=== PATIENT | male | born 1975 | race Caucasian/White ===

== ENCOUNTER 2021-10-10 07:45 | Inpatient (IN) ==
[2021-10-10] MEDS ORDERED: IOPAMIDOL 100 ML BOTTLE IV ONE (07:46)
--- NOTE | 2021-10-10 08:03 | Emergency Department Note ---
HPI General Chief complaint: Shortness of Breath/Dyspnea Stated complaint: shortness of breath, low O2 sats Time Seen by Provider: 10/10/21 08:03 Source: patient and other (Friend) Mode of arrival: ambulatory Limitations: other (Deafness) History of Present Illness HPI Narrative: 46-year-old male with past medical history of deafness and CAD not on anticoagulation presenting with shortness of breath. He was diagnosed with COVID-19 on October 03 at the [facility]. He presents today with worsening shortness of breath and generalized fatigue. Oxygen saturation at urgent care was in the 70s on room air so sent to the ED. He endorses a nonproductive cough and fever as well. He has not received the COVID-19 vaccine. No abdominal pain, chest pain, vomiting, or leg swelling. History was obtained via friend and patient who are both able to read lips. Related Data Home Medications Medication Instructions Recorded Confirmed No Known Home Meds 10/10/21 10/10/21 Allergies Allergy/AdvReac Type Severity Reaction Status Date / Time NKDA Allergy Unknown NONE Uncoded 10/10/21 08:16 Review of Systems ROS ROS Narrative: Narrative: Constitutional: Reports fever ENT ED: Denies throat pain Cardiovascular: Denies chest pain Respiratory: Reports shortness of breath and cough; Denies hemoptysis Gastrointestinal: Denies abdominal pain, nausea or vomiting Genitourinary: Denies dysuria Musculoskeletal: Denies back pain Integumentary: Denies rash Neurological: Denies headache Psychiatric: Denies anxiety Endocrine: Reports fatigue PFSH Narrative Patient History Narrative: Narrative: Medical/Surgical/Family History All Active Problems (Updated 10/10/21 @ 17:18 by Saad Elias MD) COVID (Acute) Social History Smoking Status: Never smoker Exam Narrative Narrative: Narrative: General Limitations: other (Deafness) General appearance: Present alert and in no apparent distress Head Head: Present atraumatic and normocephalic Eye Eye: Present normal appearance and EOMI; Absent scleral icterus or conjunctival injection ENT ENT: Present mucous membranes moist Neck Neck: Present normal inspection, full ROM and trachea midline Chest Chest: Present symmetric chest wall rise Respiratory Respiratory: Present normal lung sounds bilaterally; Absent respiratory distress, wheezes, stridor, accessory muscle use or prolonged expiratory phase Cardiovascular Cardiovascular: Present regular rate and normal rhythm; Absent systolic murmur or diastolic murmur Adbominal Abdominal: Present soft; Absent distention, tenderness, guarding, rebound or rigidity Extremities Extremities: Present normal inspection and full ROM; Absent pretibial edema Back Back: Present normal inspection Neurological Neurological: Present alert and oriented X3 Psychiatric Psychiatric: Present normal affect and normal mood Skin Skin: Present warm (WNL) and dry Course Consultations Consultation #1: Dr. Rendon, hospitalist Time: 11:01 Vital Signs Vital signs: Vital Signs Pulse Rate 90 10/10/21 07:56 Blood Pressure 133/72 10/10/21 07:56 Pulse Oximetry (%) 92 10/10/21 07:56 Temperature 97.2 F 10/10/21 16:02 Pulse Rate 83 10/10/21 13:17 Respiratory Rate 30 H 10/10/21 16:19 Blood Pressure 131/76 10/10/21 16:02 Pulse Oximetry (%) 83 L 10/10/21 16:19 MDM MDM Narrative Medical decision making narrative: 46-year-old male presenting with shortness of breath and fatigue. He recently tested positive for COVID-19. On arrival to the ED he was satting in the 70s on room air, he is now satting in the low 90s on 6 L via nasal cannula. Will obtain labs, chest x-ray, and likely admit for hypoxia secondary to Covid 19. Patient discussed with admitting hospitalist, Dr. Hernandez. IV dexamethasone 10 mg and remdesivir ordered. Lab Data Lab results reviewed: Yes I reviewed the patient's lab results. Result diagrams: 10/10/21 08:27 10/10/21 08:27 Labs: Lab Results 10/10/21 10/10/21 10/10/21 Range/Units 08:15 08:27 08:27 WBC 5.7 (4.5-11.0) K/mcL RBC 4.01 L (4.63-6.08) M/mcL Hgb 12.9 L (13.7-17.5) g/dL Hct 38.0 L (40.1-51.0) % MCV 94.8 (80.0-100.0) fL MCH 32.2 (26.0-34.0) pg MCHC 33.9 (31.0-36.0) g/dL RDW 12.5 (11.5-14.5) % Plt Count 189 (140-440) K/mcL MPV 11.1 H (7.4-10.4) fL Neut % (Auto) 81.3 H (38.0-78.0) % Lymph % (Auto) 13.8 L (15.5-49.0) % Brown % (Auto) 4.7 (1.0-12.0) % Eos % (Auto) 0 (0.0-7.0) % Baso % (Auto) 0.2 (0.0-2.0) % Lymph # (Auto) 0.79 L (1.50-4.80) K/mcL [place] # (Auto) 0.27 (0.10-0.90) K/mcL Eos # (Auto) 0 (0.00-0.70) K/mcL Baso # (Auto) 0.01 (0.00-0.30) K/mcL Seg Neutrophils % 79 H (38-78) % Lymphocytes % 15 (15-49) % Monocytes % (Manual) 6 (1-12) % Absolute Neutrophils 4.64 (1.80-8.00) K/mcL Platelet Estimate Normal (Normal) RBC Morphology Normal (Normal) Sodium 135 (133-145) mmol/L Potassium 4.0 (3.3-5.1) mmol/L Chloride 99 (96-108) mmol/L Carbon Dioxide 26 (22-30) mmol/L Anion Gap 10.0 (8.0-16.0) BUN 12 (6-20) mg/dL Creatinine 0.9 (0.7-1.2) mg/dL GFR Calculation 103 Glucose 128 H (70-105) mg/dL Calcium 7.9 L (8.6-10.4) mg/dL Ferritin (30.0-400.0) ng/mL AST (<40) U/L ALT (<40) U/L Alkaline Phosphatase (39-117) U/L C-Reactive Protein (0.03-0.80) mg/dL Procalcitonin (<0.10) ng/mL 10/10/21 10/10/21 10/10/21 Range/Units 08:27 08:27 08:27 WBC (4.5-11.0) K/mcL RBC (4.63-6.08) M/mcL Hgb (13.7-17.5) g/dL Hct (40.1-51.0) % MCV (80.0-100.0) fL MCH (26.0-34.0) pg MCHC (31.0-36.0) g/dL RDW (11.5-14.5) % Plt Count (140-440) K/mcL MPV (7.4-10.4) fL Neut % (Auto) (38.0-78.0) % Lymph % (Auto) (15.5-49.0) % Brown % (Auto) (1.0-12.0) % Eos % (Auto) (0.0-7.0) % Baso % (Auto) (0.0-2.0) % Lymph # (Auto) (1.50-4.80) K/mcL Brown # (Auto) (0.10-0.90) K/mcL Eos # (Auto) (0.00-0.70) K/mcL Baso # (Auto) (0.00-0.30) K/mcL Seg Neutrophils % (38-78) % Lymphocytes % (15-49) % Monocytes % (Manual) (1-12) % Absolute Neutrophils (1.80-8.00) K/mcL Platelet Estimate (Normal) RBC Morphology (Normal) Sodium (133-145) mmol/L Potassium (3.3-5.1) mmol/L Chloride (96-108) mmol/L Carbon Dioxide (22-30) mmol/L Anion Gap (8.0-16.0) BUN (6-20) mg/dL Creatinine (0.7-1.2) mg/dL GFR Calculation Glucose (70-105) mg/dL Calcium (8.6-10.4) mg/dL Ferritin 1549.0 H (30.0-400.0) ng/mL AST 61 H (<40) U/L ALT 51 H (<40) U/L Alkaline Phosphatase 38 L (39-117) U/L C-Reactive Protein 17.70 H (0.03-0.80) mg/dL Procalcitonin 0.98 H (<0.10) ng/mL Radiology Data Radiology results reviewed: Yes I reviewed the patient's radiology results. Radiology results narrative: Ordering Physician:Saad Elias M.D. Date of Service:10/10/21 Procedure(s):CT angio chest History: Severe hypoxia, chest pain, tested positive for COVID pneumonia TECHNIQUE: Following injection of intravenous nonionic contrast the chest was imaged during the pulmonary arterial phase. Sagittal, coronal and axial MIPS images were created. The radiation exposure was limited using dose reduction technology. FINDINGS: The pulmonary arteries are normal without evidence of emboli. The aorta is normal in caliber and there is no plaque formation aneurysm or dissection. The heart is normal in size and contour. No pericardial or pleural effusion are present. There are severe infiltrates throughout both lungs. This is a mosaic distribution of groundglass consolidation. The greatest opacification is in both lower lobes, where there are air bronchograms. There is no evidence of a lung mass. The trachea and bronchi are normal. No abnormally enlarged lymph nodes are present. There is mild generalized fatty infiltration throughout the liver. IMPRESSION: Severe widespread bilateral COVID pneumonia. No evidence of pulmonary emboli Dr. Minaya was called with the report Interpreted and Authenticated by: Saeid Benitez 10/10/21 Ordering Physician:Saad Elias M.D. Date of Service:10/10/21 Procedure(s):XR chest 1V portable HISTORY: Hypoxia FINDINGS: Severe widespread alveolar infiltrates are present throughout both lungs. The heart does not appear enlarged. Lung volumes are relatively small due to suboptimal inspiration. No pleural effusion is present. The eliecer are obscured by surrounding consolidated lung parenchyma. No prior study is available for comparison. IMPRESSION: Severe infiltrates in both lungs. This is more likely due to pneumonia than pulmonary edema Interpreted and Authenticated by: Saeid Benitez 10/10/21 Discharge Plan Patient/Caregiver Discharge Instructions Pt seen by LPN CMA/PA only: No Clinical Impression: COVID Patient Disposition: Xfer As Inpt ([facility]) Condition: Fair Discharge Date/Time: 10/10/21 13:35
[2021-10-10] MEDS ORDERED: 0.9 % SODIUM CHLORIDE 1,000 ML IV ONE (08:34)
[2021-10-10] MEDS ORDERED: ACETAMINOPHEN 325 MG TABLET PO ONE (08:52)
--- NOTE | 2021-10-10 08:56 | XRay Report ---
HISTORY: Hypoxia FINDINGS: Severe widespread alveolar infiltrates are present throughout both lungs. The heart does not appear enlarged. Lung volumes are relatively small due to suboptimal inspiration. No pleural effusion is present. The eliecer are obscured by surrounding consolidated lung parenchyma. No prior study is available for comparison. IMPRESSION: Severe infiltrates in both lungs. This is more likely due to pneumonia than pulmonary edema Interpreted and Authenticated by: Saeid Benitez 10/10/21
[2021-10-10 09:20] LABS: Basophils # (Auto) 0.01 K/mcL (0.00-0.30); Basophils % (Auto) 0.2 % (0.0-2.0); Eosinophils # (Auto) 0 K/mcL (0.00-0.70); Eosinophils % (Auto) 0 % (0.0-7.0); Hemoglobin 12.9 g/dL (13.7-17.5); Lymphocytes # (Auto) 0.79 K/mcL (1.50-4.80); Lymphocytes % (Auto) 13.8 % (15.5-49.0); Mean Cell Volume 94.8 fL (80.0-100.0); Mean Corpuscular HGB Conc 33.9 g/dL (31.0-36.0); Mean Platelet Volume 11.1 fL (7.4-10.4); Monocytes # (Auto) 0.27 K/mcL (0.10-0.90); Monocytes % (Auto) 4.7 % (1.0-12.0); Neutrophils % (Auto) 81.3 % (38.0-78.0); Platelet Count 189 K/mcL (140-440); RBC 4.01 M/mcL (4.63-6.08); Red Cell Distribution Width 12.5 % (11.5-14.5); WBC 5.7 K/mcL (4.5-11.0)
[2021-10-10 09:39] LABS: Blood Urea Nitrogen 12 mg/dL (6-20); Calcium 7.9 mg/dL (8.6-10.4); Carbon Dioxide 26 mmol/L (22-30); Chloride 99 mmol/L (96-108); Glomerular Filtration Rate 103; Glucose 128 mg/dL (70-105)
[2021-10-10] MEDS ORDERED: DEXAMETHASONE 10 MG/ML VIAL IV ONE (10:58)
[2021-10-10] MEDS ORDERED: REMDESIVIR 200 MG in 0.9 % SODIUM CHLORIDE 250 ML IV ONE ×2 (10:58→12:00)
--- NOTE | 2021-10-10 11:18 | Cat Scan Report ---
History: Severe hypoxia, chest pain, tested positive for COVID pneumonia TECHNIQUE: Following injection of intravenous nonionic contrast the chest was imaged during the pulmonary arterial phase. Sagittal, coronal and axial MIPS images were created. The radiation exposure was limited using dose reduction technology. FINDINGS: The pulmonary arteries are normal without evidence of emboli. The aorta is normal in caliber and there is no plaque formation aneurysm or dissection. The heart is normal in size and contour. No pericardial or pleural effusion are present. There are severe infiltrates throughout both lungs. This is a mosaic distribution of groundglass consolidation. The greatest opacification is in both lower lobes, where there are air bronchograms. There is no evidence of a lung mass. The trachea and bronchi are normal. No abnormally enlarged lymph nodes are present. There is mild generalized fatty infiltration throughout the liver. IMPRESSION: Severe widespread bilateral COVID pneumonia. No evidence of pulmonary emboli Dr. Minaya was called with the report Interpreted and Authenticated by: Saeid Benitez 10/10/21
[2021-10-10 11:41] LABS: ALT/SGPT 51 U/L (<40); AST/SGOT 61 U/L (<40); Alkaline Phosphatase 38 U/L (39-117)
[2021-10-10 12:35] LABS: C-Reactive Protein 17.7 mg/dL (0.03-0.80)
--- NOTE | 2021-10-10 12:51 | Internal Med History&Physical ---
HPI History of Present Illness Patient information: Note initiated : 10/10/21 at 12:48 pm Service Date, if different from initiated Date: [] Patient: Leonel Mccracken 46 y/o M admitted on for Shortness Of Breath, Low O2 Sats. Chief Complaint: [] History of present illness: Mr. 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 My exam is assisted by diplomatic interpreter/translator via iPad. pt presents for shortness of breath cough fever chills. Started feeling ill in late September and was positive for Covid on the . Patient not vaccinated. Oxygen saturations in the 70s on room air when he arrived. CTA was done which showed no PE but widespread infiltrates consistent with Covid pneumonia Was on 6 L nasal cannula but they change him to 15 L oxygen mask. Switched to Vapotherm and are watching in the ED for several hours to make sure he does not worsen because if he is requiring anything close to CPAP/BiPAP he will likely need to be transferred as these patients usually end up intubated if not responding to high flow nasal cannula. >>>> Patient doing well on Vapotherm with a flow of 30 and FiO2 of 60%. Review of Systems: Positive as above. Remaining 10 point review of system reviewed negative PFSH PFSH All Active Problems (System 10/10/21 @ 08:16 by Hazel Stephens) COVID (Acute) MEDS/ALLERGIES Home Medications and Allergies Home Medications Medication Instructions Recorded Confirmed Type No Known Home Meds 10/10/21 10/10/21 History Allergies Allergy/AdvReac Type Severity Reaction Status Date / Time NKDA Allergy Unknown NONE Uncoded 10/10/21 08:16 EXAM Constitutional Vitals: Temp Pulse Resp BP Pulse Ox 103.2 F H 87 24 H 122/73 92 10/10/21 07:58 10/10/21 12:16 10/10/21 12:16 10/10/21 12:16 10/10/21 12:16 Exam: General: Alert, Awake, No acute Distress, obese Eyes/N/T: EOMI, PERRL, Head/Neck: neck supple, normocephalic atraumatic CV: RRR, No murmurs, normal s1/s2 Pulm: diminished b/l, no wheezing Abd: soft, nontender, +BS x4 Ext: no clubbing/cyanosis/edema Neuro: Alert, no focal deficits, moves all extremities, CN 2-12 grossly intact, Skin: warm/dry DATA Data Completed and Pending Labs: Labs from last 24 hours 10/10/21 10/10/21 10/10/21 08:27 08:27 08:27 WBC RBC Hgb Hct MCV MCH MCHC RDW Plt Count MPV Neut % (Auto) Lymph % (Auto) [place] % (Auto) Eos % (Auto) Baso % (Auto) Lymph # (Auto) [place] # (Auto) Eos # (Auto) Baso # (Auto) Absolute Neutrophils D-Dimer Pending Sodium Potassium Chloride Carbon Dioxide Anion Gap BUN Creatinine GFR Calculation Glucose Calcium Ferritin 1549.0 H AST ALT Alkaline Phosphatase C-Reactive Protein 17.70 H Procalcitonin Pending 10/10/21 10/10/21 10/10/21 08:27 08:27 08:27 WBC 5.7 RBC 4.01 L Hgb 12.9 L Hct 38.0 L MCV 94.8 MCH 32.2 MCHC 33.9 RDW 12.5 Plt Count 189 MPV 11.1 H Neut % (Auto) 81.3 H Lymph % (Auto) 13.8 L [place] % (Auto) 4.7 Eos % (Auto) 0 Baso % (Auto) 0.2 Lymph # (Auto) 0.79 L [place] # (Auto) 0.27 Eos # (Auto) 0 Baso # (Auto) 0.01 Absolute Neutrophils 4.64 D-Dimer Sodium 135 Potassium 4.0 Chloride 99 Carbon Dioxide 26 Anion Gap 10.0 BUN 12 Creatinine 0.9 GFR Calculation 103 Glucose 128 H Calcium 7.9 L Ferritin AST 61 H ALT 51 H Alkaline Phosphatase 38 L C-Reactive Protein Procalcitonin A/P Narrative A/P Narrative: A: *Covid PNA w/ARDS: *Acute hypoxic respiratory failure: -on vapotherm 30lpm/60% *Obesity: *Deaf: P: -Remdesivir/dexamethasone/baricitinib(actemra unavailable) -Proning/mobilization/OOB to chair -Wean O2 as able -IS/Acapella, prn Nebs, RT -prn IV lasix -ppx: lovenox bid Time Spent With Patient Time: Total time spent is greater than 50% in coordination of care (as documented) at patient's floor/unit and/or counseling patient:
[2021-10-10] MEDS ORDERED: POTASSIUM CHLORIDE 20 MEQ TABLET PO PRN ×2 (13:40)
[2021-10-10] MEDS ORDERED: ONDANSETRON 4 MG/2 ML VIAL IV PRN (13:40)
[2021-10-10] MEDS ORDERED: POTASSIUM CHLORIDE 40 MEQ in DEXTROSE 5% IN WATER 500 ML IV PRN (13:40)
[2021-10-10] MEDS ORDERED: MAGNESIUM SULFATE 2 GM/50 ML BAG IV PRN (13:40)
[2021-10-10] MEDS ORDERED: SENNOSIDES 1 TABLET PO PRN (13:40)
[2021-10-10] MEDS: 0.9 % SODIUM CHLORIDE 10 ML SYRINGE IV SCH ×2 (13:58→21:49)
[2021-10-10] MEDS: BARICITINIB 2 MG TABLET PO SCH (13:58)
[2021-10-10 14:50] LABS: Lymphocytes % 15 % (15-49); Monocytes % (Manual) 6 % (1-12); Platelet Estimate NORMAL (Normal); RBC Morphology NORMAL (Normal); Segmented Neutrophils % 79 % (38-78)
[2021-10-10] MEDS: ACETAMINOPHEN 325 MG TABLET PO PRN (21:48)
[2021-10-10] MEDS: ENOXAPARIN 40 MG/0.4 ML SYRINGE SQ SCH (21:48)
[2021-10-11] MEDS: IPRATROPIUM/ALBUTEROL 3 ML AMPUL.NEB NEB PRN (02:44)
[2021-10-11] MEDS: guaiFENesin/DEXTROMETHORPHAN ORAL SOL PO PRN (03:03)
[2021-10-11] MEDS ORDERED: guaiFENesin/DEXTROMETHORPHAN ORAL SOL ONE (03:07)
[2021-10-11] MEDS: 0.9 % SODIUM CHLORIDE 10 ML SYRINGE IV SCH ×3 (06:28→21:44)
[2021-10-11] MEDS ORDERED: FUROSEMIDE 40 MG/4 ML VIAL IV ONE (07:35)
[2021-10-11] MEDS ORDERED: ALBUMIN HUMAN 12.5 GM/50 ML BAG IV ONE (07:35)
--- NOTE | 2021-10-11 07:36 | Internal Med Progress Note ---
SUBJECTIVE Subjective Patient information: Note initiated : 10/11/21 at 7:35 am Service Date, if different from initiated Date: [] Patient: Leonel Mccracken 46 y/o M admitted on 10/10/21 for Shortness Of Breath, Low O2 Sats. Chief Complaint: [] Interval history: History of present illness: Mr. 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 My exam is assisted by machine straw hat presser via iPad. pt presents for shortness of breath cough fever chills. Started feeling ill in late September and was positive for Covid on the . Patient not vaccinated. Oxygen saturations in the 70s on room air when he arrived. CTA was done which showed no PE but widespread infiltrates consistent with Covid pneumonia Was on 6 L nasal cannula but they change him to 15 L oxygen mask. Switched to Vapotherm and are watching in the ED for several hours to make sure he does not worsen because if he is requiring anything close to CPAP/BiPAP he will likely need to be transferred as these patients usually end up intubated if not responding to high flow nasal cannula. >>>> Patient doing well on Vapotherm with a flow of 30 and FiO2 of 60%. / Patient slept okay but not particularly well. Says his shortness of breath is okay and sometimes difficult. He is requiring more oxygen. He states it hurts to cough. He was not proning yesterday but was willing to do it today. Constitutional Vitals: Vital Signs Temp Pulse Resp BP Pulse Ox 98.1 F 74 31 H 109/60 96 10/11/21 02:01 10/10/21 21:30 10/11/21 06:01 10/11/21 06:01 10/11/21 07:14 Period Temp Pulse Resp BP Sys/Chan Pulse Ox Last 24 Hr 97.2 F-103.2 F 74-97 19-33 103-139/60-96 76-100 Intake and Output 10/10/21 10/11/21 10/11/21 21:59 05:59 13:59 Intake Total 730 Output Total 600 600 Balance 130 -600 Weight 93.44 kg Intake & Output: Intake & Output 10/10/21 10/11/21 10/11/21 21:59 05:59 13:59 Intake Total 730 Output Total 600 600 Balance 130 -600 Weight 93.44 kg Intake: IV 250 Veklury 200 mg In Sodium 250 Chloride 0.9% 250 ml @ 500 mls/ hr IV ONCE ONE Rx#:[id number] Oral 480 Output: Void Amount 600 600 Other: Meal Dinner Percent of Meal Consumed 100% Feeding Ability Independent Urine Appearance Clear Clear Urine Color Dark Yellow Light Ana Cristina Urine Odor Normal Exam: General: Alert, Awake, No acute Distress, obese Eyes/N/T: EOMI, Head/Neck: neck supple, CV: RRR, No murmurs, Pulm: diminished b/l and fine rales, no wheezing Abd: soft, nontender, +BS x4 Ext: no clubbing/cyanosis/edema Neuro: Alert, no focal deficits, moves all extremities, Skin: warm/dry OBJ DATA Labs CBC & Chem 7: 10/11/21 06:08 10/11/21 06:08 Labs: Abnormal Lab Results 10/10/21 10/10/21 10/10/21 08:27 08:27 08:27 RBC Hgb Hct MPV Neut % (Auto) Lymph % (Auto) Lymph # (Auto) Seg Neutrophils % Glucose Calcium Ferritin 1549.0 H AST 61 H ALT 51 H Alkaline Phosphatase 38 L C-Reactive Protein 17.70 H Procalcitonin 0.98 H 10/10/21 10/10/21 10/10/21 08:27 08:27 08:15 RBC 4.01 L Hgb 12.9 L Hct 38.0 L MPV 11.1 H Neut % (Auto) 81.3 H Lymph % (Auto) 13.8 L Lymph # (Auto) 0.79 L Seg Neutrophils % 79 H Glucose 128 H Calcium 7.9 L Ferritin AST ALT Alkaline Phosphatase C-Reactive Protein Procalcitonin Meds: Medications Acetaminophen (Acetaminophen 325 Mg Tablet) 650 mg PO Q6HP PRN; Protocol PRN Reason: Per Pain Protocol/Fever > 101 Albuterol/Ipratropium (Ipratropium/Albuterol 3 Ml Ampul.Neb) 3 ml NEB Q4HP PRN PRN Reason: Shortness Of Breath Last Admin: 10/11/21 02:44 Dose: 3 ml Documented by: Dexamethasone (Dexamethasone 4 Mg Tablet) 6 mg PO DAILY RADHA Enoxaparin Sodium (Enoxaparin 40 Mg/0.4 Ml Syringe) 40 mg SQ BID [facility] Last Admin: 10/10/21 21:48 Dose: 40 mg Documented by: Guaifenesin (Guaifenesin/Dextromethorphan Oral Leandra) 10 ml PO Q4HP PRN PRN Reason: Cough Last Admin: 10/11/21 03:03 Dose: 10 ml Documented by: Potassium Chloride 40 meq/ (Dextrose) 520 mls @ 130 mls/hr IV UD PRN PRN Reason: Potassium < 3 Magnesium Sulfate (Magnesium Sulfate) 2 gm in 50 mls @ 50 mls/hr IV UD PRN PRN Reason: Magnesium </= 1.6 REMDESIVIR 100 mg/ Sodium (Chloride) 250 mls @ 500 mls/hr IV DAILY@1100 [facility] Stop: 10/14/21 11:29 Ondansetron HCl (Ondansetron 4 Mg/2 Ml Vial) 4 mg IV Q4HP PRN PRN Reason: Nausea And Vomiting Polyethylene Glycol (Polyethylene Glycol 3350 17 Gm Packet) 17 gm PO DAILYP PRN PRN Reason: Constipation Potassium Chloride (Potassium Chloride 20 Meq Tablet) 40 meq PO UD PRN PRN Reason: Potssium is 3-3.5 Potassium Chloride (Potassium Chloride 20 Meq Tablet) 40 meq PO UD PRN PRN Reason: Potassium < 3 Senna (Sennosides 1 Tablet) 2 tab PO DAILYP PRN PRN Reason: Constipation Sodium Chloride (0.9 % Sodium Chloride 10 Ml Syringe) 10 ml IV Q8 [facility] Last Admin: 10/11/21 06:28 Dose: 10 ml Documented by: A/P Narrative A/P Narrative: A: *Covid PNA w/ARDS: *Acute hypoxic respiratory failure: -on vapotherm 35lpm/70% *Obesity: *Deaf: P: -Remdesivir/dexamethasone/baricitinib(actemra unavailable) -Proning/mobilization/OOB to chair -Wean O2 as able -IS/Acapella, prn Nebs, RT -prn IV lasix -ppx: lovenox bid Time Spent With Patient Time: Total time spent is greater than 50% in coordination of care (as documented) at patient's floor/unit and/or counseling patient: QUALITY VTE Deep Vein Thrombosis/Pulmonary Embolism Present on Admission: No
[2021-10-11 07:41] LABS: Basophils # (Auto) 0 K/mcL (0.00-0.30); Basophils % (Auto) 0 % (0.0-2.0); Eosinophils # (Auto) 0 K/mcL (0.00-0.70); Eosinophils % (Auto) 0 % (0.0-7.0); Hematocrit 41.7 % (40.1-51.0); Lymphocytes # (Auto) 0.75 K/mcL (1.50-4.80); Lymphocytes % (Auto) 10.5 % (15.5-49.0); Mean Cell Volume 95.6 fL (80.0-100.0); Mean Corpuscular HGB Conc 33.6 g/dL (31.0-36.0); Monocytes # (Auto) 0.33 K/mcL (0.10-0.90); Monocytes % (Auto) 4.6 % (1.0-12.0); Neutrophils % (Auto) 84.9 % (38.0-78.0); Platelet Count 222 K/mcL (140-440); RBC 4.36 M/mcL (4.63-6.08); Red Cell Distribution Width 12.5 % (11.5-14.5); WBC 7.1 K/mcL (4.5-11.0)
[2021-10-11 08:13] LABS: ALT/SGPT 53 U/L (<40); AST/SGOT 58 U/L (<40); Albumin 2.9 gm/dL (3.2-5.2); Albumin/Globulin Ratio 0.9 (1.0-2.3); Alkaline Phosphatase 41 U/L (39-117); Bilirubin,Direct < 0.2 mg/dL (0-0.3); Bilirubin,Total 0.4 mg/dL (0.1-1.0); Blood Urea Nitrogen 14 mg/dL (6-20); Calcium 8.2 mg/dL (8.6-10.4); Carbon Dioxide 24 mmol/L (22-30); Chloride 106 mmol/L (96-108); Globulin 3.3 gm/dL (2.2-3.7); Glomerular Filtration Rate 115; Glucose 142 mg/dL (70-105); Lactate Dehydrogenase 650 U/L (135-225); Triglycerides 73 mg/dL (<150); Uric Acid 4.6 mg/dL (2.5-8.0)
[2021-10-11] MEDS: BARICITINIB 2 MG TABLET PO SCH (09:25)
[2021-10-11] MEDS: DEXAMETHASONE 4 MG TABLET PO SCH (09:25)
[2021-10-11] MEDS: ENOXAPARIN 40 MG/0.4 ML SYRINGE SQ SCH ×2 (09:25→21:44)
[2021-10-11] MEDS: cefTRIAXone 2 GM in DEXTROSE 5% IN WATER 50 ML IV SCH (09:29)
[2021-10-11] MEDS ORDERED: AZITHROMYCIN 500 MG in DEXTROSE 5% IN WATER 250 ML IV ONE (10:00)
[2021-10-11] MEDS: REMDESIVIR 100 MG in 0.9 % SODIUM CHLORIDE 250 ML IV SCH (11:00)
[2021-10-12] MEDS: IPRATROPIUM/ALBUTEROL 3 ML AMPUL.NEB NEB PRN (00:13)
[2021-10-12] MEDS: guaiFENesin/DEXTROMETHORPHAN ORAL SOL PO PRN (00:14)
[2021-10-12] MEDS: 0.9 % SODIUM CHLORIDE 10 ML SYRINGE IV SCH ×4 (06:25→21:36)
--- NOTE | 2021-10-12 07:28 | Internal Med Progress Note ---
SUBJECTIVE Subjective Patient information: Note initiated : 10/12/21 at 7:26 am Service Date, if different from initiated Date: [] Patient: Leonel Mccracken 46 y/o M admitted on 10/10/21 for Shortness Of Breath, Low O2 Sats. Chief Complaint: [] Interval history: History of present illness: Mr. 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 My exam is assisted by bilingual interpreter via iPad. pt presents for shortness of breath cough fever chills. Started feeling ill in late September and was positive for Covid on the . Patient not vaccinated. Oxygen saturations in the 70s on room air when he arrived. CTA was done which showed no PE but widespread infiltrates consistent with Covid pneumonia Was on 6 L nasal cannula but they change him to 15 L oxygen mask. Switched to Vapotherm and are watching in the ED for several hours to make sure he does not worsen because if he is requiring anything close to CPAP/BiPAP he will likely need to be transferred as these patients usually end up intubated if not responding to high flow nasal cannula. >>>> Patient doing well on Vapotherm with a flow of 30 and FiO2 of 60%. 1/ Patient slept okay but not particularly well. Says his shortness of breath is okay and sometimes difficult. He is requiring more oxygen. He states it hurts to cough. He was not proning yesterday but was willing to do it today. 10/12 Patient feels he is doing little better today. However still on high oxygen requirement at 45 L and 100% FiO2. We will attempt more proning today. Constitutional Vitals: Vital Signs Temp Pulse Resp BP Pulse Ox 97.4 F 74 25 H 126/64 90 10/12/21 04:01 10/10/21 21:30 10/12/21 07:21 10/12/21 07:01 10/12/21 07:21 Period Temp Pulse Resp BP Sys/Chan Pulse Ox Last 24 Hr 97.1 F-98.4 F 22-38 101-137/56-86 89-98 Intake and Output 10/11/21 10/12/21 10/12/21 21:59 05:59 13:59 Intake Total 480 720 Output Total 700 Balance 480 20 Weight 92.618 kg Intake & Output: Intake & Output 10/11/21 10/12/21 10/12/21 21:59 05:59 13:59 Intake Total 480 720 Output Total 700 Balance 480 20 Weight 92.618 kg Intake: Oral 480 720 Output: Void Amount 700 Other: Urine Appearance Clear Urine Color Dark Yellow Exam: General: Alert, Awake, No acute Distress, obese Eyes/N/T: EOMI, Head/Neck: neck supple, CV: RRR, No murmurs, Pulm: diminished b/l and fine rales, no wheezing Abd: soft, nontender, +BS x4 Ext: no clubbing/cyanosis/edema Neuro: Alert, no focal deficits, moves all extremities, Skin: warm/dry OBJ DATA Labs CBC & Chem 7: 10/11/21 06:08 10/12/21 05:49 Labs: Abnormal Lab Results 10/11/21 10/11/21 10/11/21 06:09 06:08 06:08 RBC 4.36 L Hgb Hct MPV 11.0 H Neut % (Auto) 84.9 H Lymph % (Auto) 10.5 L Lymph # (Auto) 0.75 L Seg Neutrophils % D-Dimer Glucose 142 H Calcium 8.2 L Magnesium 2.6 H Ferritin AST 58 H ALT 53 H Alkaline Phosphatase Lactate Dehydrogenase 650 H C-Reactive Protein 18.40 H Albumin 2.9 L Albumin/Globulin Ratio 0.9 L Procalcitonin 0.67 H 10/10/21 10/10/21 10/10/21 08:27 08:27 08:27 RBC Hgb Hct MPV Neut % (Auto) Lymph % (Auto) Lymph # (Auto) Seg Neutrophils % D-Dimer 1.43 H Glucose Calcium Magnesium Ferritin 1549.0 H AST ALT Alkaline Phosphatase Lactate Dehydrogenase C-Reactive Protein 17.70 H Albumin Albumin/Globulin Ratio Procalcitonin 0.98 H 10/10/21 10/10/21 10/10/21 08:27 08:27 08:27 RBC 4.01 L Hgb 12.9 L Hct 38.0 L MPV 11.1 H Neut % (Auto) 81.3 H Lymph % (Auto) 13.8 L Lymph # (Auto) 0.79 L Seg Neutrophils % D-Dimer Glucose 128 H Calcium 7.9 L Magnesium Ferritin AST 61 H ALT 51 H Alkaline Phosphatase 38 L Lactate Dehydrogenase C-Reactive Protein Albumin Albumin/Globulin Ratio Procalcitonin 10/10/21 08:15 RBC Hgb Hct MPV Neut % (Auto) Lymph % (Auto) Lymph # (Auto) Seg Neutrophils % 79 H D-Dimer Glucose Calcium Magnesium Ferritin AST ALT Alkaline Phosphatase Lactate Dehydrogenase C-Reactive Protein Albumin Albumin/Globulin Ratio Procalcitonin Meds: Medications Acetaminophen (Acetaminophen 325 Mg Tablet) 650 mg PO Q6HP PRN; Protocol PRN Reason: Per Pain Protocol/Fever > 101 Albuterol/Ipratropium (Ipratropium/Albuterol 3 Ml Ampul.Neb) 3 ml NEB Q4HP PRN PRN Reason: Shortness Of Breath Last Admin: 10/12/21 00:13 Dose: 3 ml Documented by: Dexamethasone (Dexamethasone 4 Mg Tablet) 6 mg PO DAILY [facility] Last Admin: 10/11/21 09:25 Dose: 6 mg Documented by: Enoxaparin Sodium (Enoxaparin 40 Mg/0.4 Ml Syringe) 40 mg SQ BID [facility] Last Admin: 10/11/21 21:44 Dose: 40 mg Documented by: Guaifenesin (Guaifenesin/Dextromethorphan Oral Leandra) 10 ml PO Q4HP PRN PRN Reason: Cough Last Admin: 10/12/21 00:14 Dose: 10 ml Documented by: Potassium Chloride 40 meq/ (Dextrose) 520 mls @ 130 mls/hr IV UD PRN PRN Reason: Potassium < 3 Magnesium Sulfate (Magnesium Sulfate) 2 gm in 50 mls @ 50 mls/hr IV UD PRN PRN Reason: Magnesium </= 1.6 REMDESIVIR 100 mg/ Sodium (Chloride) 250 mls @ 500 mls/hr IV DAILY@1100 [facility] Stop: 10/14/21 11:29 Last Infusion: 10/11/21 11:46 Dose: Infused Documented by: Ceftriaxone Sodium 2 gm/ (Dextrose) 50 mls @ 100 mls/hr IV DAILY [facility]; Protocol Last Infusion: 10/11/21 10:30 Dose: Infused Documented by: Azithromycin 250 mg/ Dextrose 250 mls @ 250 mls/hr IV DAILY@1000 [facility] Stop: 10/15/21 10:59 Ondansetron HCl (Ondansetron 4 Mg/2 Ml Vial) 4 mg IV Q4HP PRN PRN Reason: Nausea And Vomiting Last Admin: 10/11/21 11:42 Dose: 4 mg Documented by: Polyethylene Glycol (Polyethylene Glycol 3350 17 Gm Packet) 17 gm PO DAILYP PRN PRN Reason: Constipation Potassium Chloride (Potassium Chloride 20 Meq Tablet) 40 meq PO UD PRN PRN Reason: Potssium is 3-3.5 Potassium Chloride (Potassium Chloride 20 Meq Tablet) 40 meq PO UD PRN PRN Reason: Potassium < 3 Senna (Sennosides 1 Tablet) 2 tab PO DAILYP PRN PRN Reason: Constipation Sodium Chloride (0.9 % Sodium Chloride 10 Ml Syringe) 10 ml IV Q8 RADHA Last Admin: 10/12/21 06:25 Dose: 10 ml Documented by: A/P Narrative A/P Narrative: A: *Covid PNA w/ARDS: *Acute hypoxic respiratory failure: -on vapotherm 45lpm/85-100% *Obesity: *Deaf: P: -Remdesivir/dexamethasone/baricitinib(actemra unavailable) -Empiric antibiotics given elevation of procalcitonin and severity of disease process -Proning/mobilization/OOB to chair -Wean O2 as able -IS/Acapella, prn Nebs, RT -prn IV lasix -ppx: lovenox bid guarded prognosis Time Spent With Patient Time: Total time spent is greater than 50% in coordination of care (as documented) at patient's floor/unit and/or counseling patient: QUALITY VTE Deep Vein Thrombosis/Pulmonary Embolism Present on Admission: No
[2021-10-12] MEDS: BARICITINIB 2 MG TABLET PO SCH (08:13)
[2021-10-12] MEDS: DEXAMETHASONE 4 MG TABLET PO SCH (08:14)
[2021-10-12] MEDS: cefTRIAXone 2 GM in DEXTROSE 5% IN WATER 50 ML IV SCH (08:14)
[2021-10-12] MEDS: ENOXAPARIN 40 MG/0.4 ML SYRINGE SQ SCH ×2 (08:14→21:36)
[2021-10-12 08:20] LABS: ALT/SGPT 61 U/L (<40); AST/SGOT 48 U/L (<40); Alkaline Phosphatase 47 U/L (39-117); Bilirubin,Direct < 0.2 mg/dL (0-0.3); Bilirubin,Total 0.4 mg/dL (0.1-1.0); Blood Urea Nitrogen 20 mg/dL (6-20); Calcium 8.1 mg/dL (8.6-10.4); Carbon Dioxide 25 mmol/L (22-30); Chloride 104 mmol/L (96-108); Glomerular Filtration Rate 108; Glucose 219 mg/dL (70-105); Lactate Dehydrogenase 571 U/L (135-225); Phosphorous 3.9 mg/dL (2.5-4.5); Triglycerides 73 mg/dL (<150); Uric Acid 5.6 mg/dL (2.5-8.0)
[2021-10-12] MEDS: AZITHROMYCIN 250 MG in DEXTROSE 5% IN WATER 250 ML IV SCH (09:30)
[2021-10-12] MEDS ORDERED: HYDROCHLOROTHIAZIDE 12.5 MG CAPSULE PO ONE (10:23)
[2021-10-12] MEDS ORDERED: FUROSEMIDE 40 MG/4 ML VIAL IV ONE (10:23)
[2021-10-12] MEDS: REMDESIVIR 100 MG in 0.9 % SODIUM CHLORIDE 250 ML IV SCH (10:40)
[2021-10-12] MEDS: POLYETHYLENE GLYCOL 3350 17 GM PACKET PO PRN (13:17)
[2021-10-12] MEDS: ACETAMINOPHEN 325 MG TABLET PO PRN (21:44)
[2021-10-13] MEDS: 0.9 % SODIUM CHLORIDE 10 ML SYRINGE IV SCH ×3 (05:18→21:04)
[2021-10-13 08:11] LABS: ALT/SGPT 69 U/L (<40); AST/SGOT 43 U/L (<40); Albumin 3.2 gm/dL (3.2-5.2); Albumin/Globulin Ratio 1.6 (1.0-2.3); Alkaline Phosphatase 51 U/L (39-117); Bilirubin,Direct < 0.2 mg/dL (0-0.3); Bilirubin,Total 0.5 mg/dL (0.1-1.0); Blood Urea Nitrogen 23 mg/dL (6-20); Calcium 7.9 mg/dL (8.6-10.4); Carbon Dioxide 27 mmol/L (22-30); Chloride 100 mmol/L (96-108); Glomerular Filtration Rate 115; Glucose 206 mg/dL (70-105); Lactate Dehydrogenase 582 U/L (135-225); Phosphorous 3.8 mg/dL (2.5-4.5); Triglycerides 113 mg/dL (<150); Uric Acid 5.9 mg/dL (2.5-8.0)
[2021-10-13] MEDS ORDERED: FAMOTIDINE/PF 20 MG/2 ML VIAL IV ONE (08:22)
--- NOTE | 2021-10-13 08:26 | Internal Med Progress Note ---
SUBJECTIVE Subjective Patient information: Note initiated : 10/13/21 at 8:22 am Service Date, if different from initiated Date: [] Patient: Leonel Mccracken 46 y/o M admitted on 10/10/21 for Shortness Of Breath, Low O2 Sats. Chief Complaint: [] Interval history: History of present illness: Mr. 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 My exam is assisted by per diem interpreter via iPad. pt presents for shortness of breath cough fever chills. Started feeling ill in late September and was positive for Covid on the . Patient not vaccinated. Oxygen saturations in the 70s on room air when he arrived. CTA was done which showed no PE but widespread infiltrates consistent with Covid pneumonia Was on 6 L nasal cannula but they change him to 15 L oxygen mask. Switched to Vapotherm and are watching in the ED for several hours to make sure he does not worsen because if he is requiring anything close to CPAP/BiPAP he will likely need to be transferred as these patients usually end up intubated if not responding to high flow nasal cannula. >>>> Patient doing well on Vapotherm with a flow of 30 and FiO2 of 60%. 1/ Patient slept okay but not particularly well. Says his shortness of breath is okay and sometimes difficult. He is requiring more oxygen. He states it hurts to cough. He was not proning yesterday but was willing to do it today. 10/12 Patient feels he is doing little better today. However still on high oxygen requirement at 45 L and 100% FiO2. We will attempt more proning today. 10/13 Patient seems to feeling a little bit better today. Nurse able to go down quite a bit on his FiO2 down to 50% today. Constitutional Vitals: Vital Signs Temp Pulse Resp BP Pulse Ox 97.8 F 74 21 123/65 94 10/13/21 04:01 10/13/21 07:48 10/13/21 07:48 10/13/21 06:01 10/13/21 07:48 Period Temp Pulse Resp BP Sys/Chan Pulse Ox Last 24 Hr 97.4 F-98.3 F 74-74 20-39 107-135/59-79 88-100 Intake and Output 0110/13/21 10/13/21 21:59 05:59 13:59 Intake Total 640 Output Total 500 450 Balance -500 190 Weight 91.796 kg Intake & Output: Intake & Output 10/12/21 10/13/21 10/13/21 21:59 05:59 13:59 Intake Total 640 Output Total 500 450 Balance -500 190 Weight 91.796 kg Intake: Oral 640 Output: Void Amount 500 450 Other: Urine Appearance Clear Clear Urine Color Bright Yellow Pale Urine Odor Normal Exam: General: Alert, Awake, No acute Distress, obese Eyes/N/T: EOMI, Head/Neck: neck supple, CV: RRR, No murmurs, Pulm: better aeration, clearing fine rales, no wheezing Abd: soft, nontender, +BS x4 Ext: no clubbing/cyanosis/edema Neuro: Alert, no focal deficits, moves all extremities, Skin: warm/dry OBJ DATA Labs CBC & Chem 7: 10/11/21 06:08 10/13/21 06:00 Labs: Abnormal Lab Results 10/13/21 10/12/21 10/12/21 06:00 05:49 05:49 RBC Hgb Hct MPV Neut % (Auto) Lymph % (Auto) Lymph # (Auto) Seg Neutrophils % D-Dimer BUN 23 H Glucose 206 H 219 H Calcium 7.9 L 8.1 L Magnesium Ferritin > 2000.0 H AST 43 H 48 H ALT 69 H 61 H Alkaline Phosphatase Lactate Dehydrogenase 582 H 571 H C-Reactive Protein 7.50 H Total Protein 5.2 L Albumin 3.0 L Globulin 2.0 L Albumin/Globulin Ratio Procalcitonin 10/12/21 10/12/21 10/11/21 05:49 05:49 06:09 RBC Hgb Hct MPV Neut % (Auto) Lymph % (Auto) Lymph # (Auto) Seg Neutrophils % D-Dimer 1.54 H BUN Glucose Calcium Magnesium Ferritin AST ALT Alkaline Phosphatase Lactate Dehydrogenase C-Reactive Protein Total Protein Albumin Globulin Albumin/Globulin Ratio Procalcitonin 0.43 H 0.67 H 10/11/21 10/11/21 10/10/21 06:08 06:08 08:27 RBC 4.36 L Hgb Hct MPV 11.0 H Neut % (Auto) 84.9 H Lymph % (Auto) 10.5 L Lymph # (Auto) 0.75 L Seg Neutrophils % D-Dimer BUN Glucose 142 H Calcium 8.2 L Magnesium 2.6 H Ferritin AST 58 H ALT 53 H Alkaline Phosphatase Lactate Dehydrogenase 650 H C-Reactive Protein 18.40 H Total Protein Albumin 2.9 L Globulin Albumin/Globulin Ratio 0.9 L Procalcitonin 0.98 H 10/10/21 10/10/21 10/10/21 08:27 08:27 08:27 RBC Hgb Hct MPV Neut % (Auto) Lymph % (Auto) Lymph # (Auto) Seg Neutrophils % D-Dimer 1.43 H BUN Glucose Calcium Magnesium Ferritin 1549.0 H AST 61 H ALT 51 H Alkaline Phosphatase 38 L Lactate Dehydrogenase C-Reactive Protein 17.70 H Total Protein Albumin Globulin Albumin/Globulin Ratio Procalcitonin 10/10/21 10/10/21 10/10/21 08:27 08:27 08:15 RBC 4.01 L Hgb 12.9 L Hct 38.0 L MPV 11.1 H Neut % (Auto) 81.3 H Lymph % (Auto) 13.8 L Lymph # (Auto) 0.79 L Seg Neutrophils % 79 H D-Dimer BUN Glucose 128 H Calcium 7.9 L Magnesium Ferritin AST ALT Alkaline Phosphatase Lactate Dehydrogenase C-Reactive Protein Total Protein Albumin Globulin Albumin/Globulin Ratio Procalcitonin Meds: Medications Acetaminophen (Acetaminophen 325 Mg Tablet) 650 mg PO Q6HP PRN; Protocol PRN Reason: Per Pain Protocol/Fever > 101 Last Admin: 10/12/21 21:44 Dose: 650 mg Documented by: Albuterol/Ipratropium (Ipratropium/Albuterol 3 Ml Ampul.Neb) 3 ml NEB Q4HP PRN PRN Reason: Shortness Of Breath Last Admin: 10/12/21 00:13 Dose: 3 ml Documented by: Dexamethasone (Dexamethasone 4 Mg Tablet) 6 mg PO DAILY [facility] Last Admin: 10/12/21 08:14 Dose: 6 mg Documented by: Enoxaparin Sodium (Enoxaparin 40 Mg/0.4 Ml Syringe) 40 mg SQ BID [facility] Last Admin: 10/12/21 21:36 Dose: 40 mg Documented by: Guaifenesin (Guaifenesin/Dextromethorphan Oral Leandra) 10 ml PO Q4HP PRN PRN Reason: Cough Last Admin: 10/12/21 00:14 Dose: 10 ml Documented by: Potassium Chloride 40 meq/ (Dextrose) 520 mls @ 130 mls/hr IV UD PRN PRN Reason: Potassium < 3 Magnesium Sulfate (Magnesium Sulfate) 2 gm in 50 mls @ 50 mls/hr IV UD PRN PRN Reason: Magnesium </= 1.6 REMDESIVIR 100 mg/ Sodium (Chloride) 250 mls @ 500 mls/hr IV DAILY@1100 [facility] Stop: 10/14/21 11:29 Last Infusion: 10/12/21 12:13 Dose: Infused Documented by: Ceftriaxone Sodium 2 gm/ (Dextrose) 50 mls @ 100 mls/hr IV DAILY [facility]; Protocol Last Infusion: 10/12/21 09:30 Dose: Infused Documented by: Azithromycin 250 mg/ Dextrose 250 mls @ 250 mls/hr IV DAILY@1000 [facility] Stop: 10/15/21 10:59 Last Infusion: 10/12/21 10:40 Dose: Infused Documented by: Ondansetron HCl (Ondansetron 4 Mg/2 Ml Vial) 4 mg IV Q4HP PRN PRN Reason: Nausea And Vomiting Last Admin: 10/11/21 11:42 Dose: 4 mg Documented by: Polyethylene Glycol (Polyethylene Glycol 3350 17 Gm Packet) 17 gm PO DAILYP PRN PRN Reason: Constipation Last Admin: 10/12/21 13:17 Dose: 17 gm Documented by: Potassium Chloride (Potassium Chloride 20 Meq Tablet) 40 meq PO UD PRN PRN Reason: Potssium is 3-3.5 Potassium Chloride (Potassium Chloride 20 Meq Tablet) 40 meq PO UD PRN PRN Reason: Potassium < 3 Senna (Sennosides 1 Tablet) 2 tab PO DAILYP PRN PRN Reason: Constipation Sodium Chloride (0.9 % Sodium Chloride 10 Ml Syringe) 10 ml IV Q8 [facility] Last Admin: 10/13/21 05:18 Dose: 10 ml Documented by: A/P Narrative A/P Narrative: A: *Covid PNA w/ARDS: *Acute hypoxic respiratory failure: -on vapotherm 35lpm/50% *Obesity: *Deaf: *mild transaminitis: Secondary to viral illness. stable P: -Remdesivir/dexamethasone/baricitinib(actemra unavailable) -Empiric antibiotics given elevation of procalcitonin and severity of disease process -Proning/mobilization/OOB to chair -Wean O2 as able -IS/Acapella, prn Nebs, RT -prn IV lasix -ppx: lovenox bid / H2 guarded prognosis Time Spent With Patient Time: Total time spent is greater than 50% in coordination of care (as documented) at patient's floor/unit and/or counseling patient: QUALITY VTE Deep Vein Thrombosis/Pulmonary Embolism Present on Admission: No
[2021-10-13] MEDS: DEXAMETHASONE 4 MG TABLET PO SCH (08:30)
[2021-10-13] MEDS: ENOXAPARIN 40 MG/0.4 ML SYRINGE SQ SCH ×2 (08:31→21:04)
[2021-10-13] MEDS: BARICITINIB 2 MG TABLET PO SCH (08:31)
[2021-10-13] MEDS: cefTRIAXone 2 GM in DEXTROSE 5% IN WATER 50 ML IV SCH (08:31)
[2021-10-13] MEDS: AZITHROMYCIN 250 MG in DEXTROSE 5% IN WATER 250 ML IV SCH (09:12)
[2021-10-13] MEDS: guaiFENesin/DEXTROMETHORPHAN ORAL SOL PO PRN ×2 (09:12→17:30)
[2021-10-13] MEDS: REMDESIVIR 100 MG in 0.9 % SODIUM CHLORIDE 250 ML IV SCH (10:20)
[2021-10-13] MEDS: SODIUM CHLORIDE NASAL 1 SPRAY BOTTLE NAS PRN (12:47)
[2021-10-13] MEDS: POLYETHYLENE GLYCOL 3350 17 GM PACKET PO PRN (16:44)
[2021-10-13] MEDS ORDERED: FAMOTIDINE/PF 20 MG/2 ML VIAL IV SCH (21:00)
[2021-10-13] MEDS: FAMOTIDINE/PF 20 MG/2 ML VIAL IV SCH (21:04)
[2021-10-14] MEDS: 0.9 % SODIUM CHLORIDE 10 ML SYRINGE IV SCH ×3 (06:30→20:08)
--- NOTE | 2021-10-14 07:49 | Internal Med Progress Note ---
SUBJECTIVE Subjective Patient information: Note initiated : 10/14/21 at 7:49 am Service Date, if different from initiated Date: [] Patient: Leonel Mccracken 46 y/o M admitted on 10/10/21 for Shortness Of Breath, Low O2 Sats. Chief Complaint: [] Interval history: History of present illness: Mr. 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 My exam is assisted by professor of voice via iPad. pt presents for shortness of breath cough fever chills. Started feeling ill in late September and was positive for Covid on the . Patient not vaccinated. Oxygen saturations in the 70s on room air when he arrived. CTA was done which showed no PE but widespread infiltrates consistent with Covid pneumonia Was on 6 L nasal cannula but they change him to 15 L oxygen mask. Switched to Vapotherm and are watching in the ED for several hours to make sure he does not worsen because if he is requiring anything close to CPAP/BiPAP he will likely need to be transferred as these patients usually end up intubated if not responding to high flow nasal cannula. >>>> Patient doing well on Vapotherm with a flow of 30 and FiO2 of 60%. 1/ Patient slept okay but not particularly well. Says his shortness of breath is okay and sometimes difficult. He is requiring more oxygen. He states it hurts to cough. He was not proning yesterday but was willing to do it today. 1 Patient feels he is doing little better today. However still on high oxygen requirement at 45 L and 100% FiO2. We will attempt more proning today. 10/13 Patient seems to feeling a little bit better today. Nurse able to go down quite a bit on his FiO2 down to 50% today. 10/14 Patient feeling better. Was on 40% FiO2 all day yesterday. Flow decreased to 30. Constitutional Vitals: Vital Signs Temp Pulse Resp BP Pulse Ox 97.7 F 57 L 21 121/80 93 10/14/21 04:01 10/14/21 00:05 10/14/21 07:10 10/14/21 07:01 10/14/21 07:10 Period Temp Pulse Resp BP Sys/Chan Pulse Ox Last 24 Hr 97.4 F-97.9 F 57-74 18-33 114-135/61-81 86-98 Intake and Output 10/13/21 10/14/21 10/14/21 21:59 05:59 13:59 Intake Total 460 300 Output Total 1025 350 Balance -565 -50 Weight 90.265 kg Intake & Output: Intake & Output 10/13/21 10/14/21 10/14/21 21:59 05:59 13:59 Intake Total 460 300 Output Total 1025 350 Balance -565 -50 Weight 90.265 kg Intake: Oral 460 300 Output: Void Amount 1025 350 Other: Meal Dinner Percent of Meal Consumed 75% Feeding Ability Independent Urine Appearance Clear Clear Urine Color Dark Ana Cristina Dark Yellow Urine Odor Strong Exam: General: Alert, Awake, No acute Distress, obese Eyes/N/T: EOMI, Head/Neck: neck supple, CV: RRR, No murmurs, Pulm: better aeration, mostly clear b/l now, no wheezing Abd: soft, nontender, +BS x4 Ext: no clubbing/cyanosis/edema Neuro: Alert, no focal deficits, moves all extremities, Skin: warm/dry OBJ DATA Labs CBC & Chem 7: 10/11/21 06:08 10/14/21 05:55 Labs: Abnormal Lab Results 10/14/21 10/13/21 10/12/21 05:55 06:00 05:49 D-Dimer 3.24 H BUN 23 H Glucose 206 H Calcium 7.9 L Magnesium Ferritin > 2000.0 H AST 43 H ALT 69 H Lactate Dehydrogenase 582 H C-Reactive Protein Total Protein 5.2 L Albumin Globulin 2.0 L Albumin/Globulin Ratio Procalcitonin 10/12/21 10/12/21 10/12/21 05:49 05:49 05:49 D-Dimer 1.54 H BUN Glucose 219 H Calcium 8.1 L Magnesium Ferritin AST 48 H ALT 61 H Lactate Dehydrogenase 571 H C-Reactive Protein 7.50 H Total Protein Albumin 3.0 L Globulin Albumin/Globulin Ratio Procalcitonin 0.43 H 10/11/21 10/11/21 10/10/21 06:09 06:08 08:27 D-Dimer 1.43 H BUN Glucose 142 H Calcium 8.2 L Magnesium 2.6 H Ferritin AST 58 H ALT 53 H Lactate Dehydrogenase 650 H C-Reactive Protein 18.40 H Total Protein Albumin 2.9 L Globulin Albumin/Globulin Ratio 0.9 L Procalcitonin 0.67 H Meds: Medications Acetaminophen (Acetaminophen 325 Mg Tablet) 650 mg PO Q6HP PRN; Protocol PRN Reason: Per Pain Protocol/Fever > 101 Last Admin: 10/12/21 21:44 Dose: 650 mg Documented by: Albuterol/Ipratropium (Ipratropium/Albuterol 3 Ml Ampul.Neb) 3 ml NEB Q4HP PRN PRN Reason: Shortness Of Breath Last Admin: 10/12/21 00:13 Dose: 3 ml Documented by: Dexamethasone (Dexamethasone 4 Mg Tablet) 6 mg PO DAILY [facility] Last Admin: 10/13/21 08:30 Dose: 6 mg Documented by: Enoxaparin Sodium (Enoxaparin 40 Mg/0.4 Ml Syringe) 40 mg SQ BID [facility] Last Admin: 10/13/21 21:04 Dose: 40 mg Documented by: Famotidine (Famotidine/Pf 20 Mg/2 Ml Vial) 20 mg IV BID [facility] Last Admin: 10/13/21 21:04 Dose: 20 mg Documented by: Guaifenesin (Guaifenesin/Dextromethorphan Oral Leandra) 10 ml PO Q4HP PRN PRN Reason: Cough Last Admin: 10/13/21 17:30 Dose: 10 ml Documented by: Potassium Chloride 40 meq/ (Dextrose) 520 mls @ 130 mls/hr IV UD PRN PRN Reason: Potassium < 3 Magnesium Sulfate (Magnesium Sulfate) 2 gm in 50 mls @ 50 mls/hr IV UD PRN PRN Reason: Magnesium </= 1.6 REMDESIVIR 100 mg/ Sodium (Chloride) 250 mls @ 500 mls/hr IV DAILY@1100 [facility] Stop: 10/14/21 11:29 Last Infusion: 10/13/21 10:50 Dose: Infused Documented by: Ceftriaxone Sodium 2 gm/ (Dextrose) 50 mls @ 100 mls/hr IV DAILY [facility]; Protocol Last Infusion: 10/13/21 09:27 Dose: Infused Documented by: Azithromycin 250 mg/ Dextrose 250 mls @ 250 mls/hr IV DAILY@1000 [facility] Stop: 10/15/21 10:59 Last Infusion: 10/13/21 10:12 Dose: Infused Documented by: Ondansetron HCl (Ondansetron 4 Mg/2 Ml Vial) 4 mg IV Q4HP PRN PRN Reason: Nausea And Vomiting Last Admin: 10/11/21 11:42 Dose: 4 mg Documented by: Polyethylene Glycol (Polyethylene Glycol 3350 17 Gm Packet) 17 gm PO DAILYP PRN PRN Reason: Constipation Last Admin: 10/13/21 16:44 Dose: 17 gm Documented by: Potassium Chloride (Potassium Chloride 20 Meq Tablet) 40 meq PO UD PRN PRN Reason: Potssium is 3-3.5 Potassium Chloride (Potassium Chloride 20 Meq Tablet) 40 meq PO UD PRN PRN Reason: Potassium < 3 Senna (Sennosides 1 Tablet) 2 tab PO DAILYP PRN PRN Reason: Constipation Sodium Chloride (0.9 % Sodium Chloride 10 Ml Syringe) 10 ml IV Q8 RADHA Last Admin: 10/14/21 06:30 Dose: 10 ml Documented by: Sodium Chloride (Sodium Chloride Nasal 1 [place] Bottle) 2 spray DELMAR Q4HP PRN PRN Reason: Congestion Last Admin: 10/13/21 12:47 Dose: 2 spray Documented by: A/P Narrative A/P Narrative: A: *Covid PNA w/ARDS: *Acute hypoxic respiratory failure: -on vapotherm 35lpm/40% *Obesity: *Deaf: *mild transaminitis: Secondary to viral illness. stable P: -Remdesivir/dexamethasone/baricitinib(actemra unavailable) -Empiric antibiotics given elevation of procalcitonin and severity of disease process -Proning/mobilization/OOB to chair -Wean O2 as able -IS/Acapella, prn Nebs, RT -prn IV lasix -ppx: lovenox bid / H2 Time Spent With Patient Time: Total time spent is greater than 50% in coordination of care (as documented) at patient's floor/unit and/or counseling patient: QUALITY VTE Deep Vein Thrombosis/Pulmonary Embolism Present on Admission: No
[2021-10-14 07:56] LABS: ALT/SGPT 58 U/L (<40); AST/SGOT 32 U/L (<40); Albumin 3.1 gm/dL (3.2-5.2); Albumin/Globulin Ratio 1.5 (1.0-2.3); Alkaline Phosphatase 48 U/L (39-117); Bilirubin,Direct < 0.2 mg/dL (0-0.3); Bilirubin,Total 0.6 mg/dL (0.1-1.0); Blood Urea Nitrogen 19 mg/dL (6-20); Calcium 7.8 mg/dL (8.6-10.4); Carbon Dioxide 26 mmol/L (22-30); Chloride 106 mmol/L (96-108); Globulin 2.1 gm/dL (2.2-3.7); Glomerular Filtration Rate 115; Glucose 85 mg/dL (70-105); Lactate Dehydrogenase 516 U/L (135-225); Triglycerides 123 mg/dL (<150); Uric Acid 5.4 mg/dL (2.5-8.0)
[2021-10-14] MEDS: ENOXAPARIN 40 MG/0.4 ML SYRINGE SQ SCH ×2 (08:29→20:08)
[2021-10-14] MEDS: FAMOTIDINE/PF 20 MG/2 ML VIAL IV SCH ×2 (08:30→20:08)
[2021-10-14] MEDS: DEXAMETHASONE 4 MG TABLET PO SCH (08:30)
[2021-10-14] MEDS: BARICITINIB 2 MG TABLET PO SCH (08:31)
[2021-10-14] MEDS: cefTRIAXone 2 GM in DEXTROSE 5% IN WATER 50 ML IV SCH (08:31)
[2021-10-14] MEDS: AZITHROMYCIN 250 MG in DEXTROSE 5% IN WATER 250 ML IV SCH (09:19)
[2021-10-14] MEDS: REMDESIVIR 100 MG in 0.9 % SODIUM CHLORIDE 250 ML IV SCH (10:26)
[2021-10-14] MEDS: POLYETHYLENE GLYCOL 3350 17 GM PACKET PO PRN (12:02)
--- NOTE | 2021-10-14 13:59 | Internal Med Progress Note ---
SUBJECTIVE Subjective Patient information: Note initiated : 10/15/21 at 1:53 pm Service Date, if different from initiated Date: [] Patient: Leonel Mccracken 46 y/o M admitted on 10/10/21 for Shortness Of Breath, Low O2 Sats. Chief Complaint: [] Interval history: History of present illness: 4Mr. Kaykay is a 46 year old male who presented for shortness of breath cough fever chills.The patient began to feel ill in late September and tested positive for Covid on October 03. The patient has not been vaccinated for COVID. Oxygen saturations where in the 70s on room air when he arrived to the ED. CTA was done which showed no PE but widespread infiltrates consistent with Covid pneumonia. The patient was initially on 6 L/min nasal cannula however that had to be increased to 15 L/min by oxygen mask then switched to Vapotherm. The pa german was monitored in the ED for several hours to make sure he did not worsen clinically. The patient remained stable on Vapotherm with a flow of 30 and FiO2 of 60%. 10/11 Patient slept okay but not particularly well. Says his shortness of breath is okay and sometimes difficult. He is requiring more oxygen. He states it hurts to cough. He was not proning yesterday but was willing to do it today. 10/12 Patient feels he is doing little better today. However still on high oxygen requirement at 45 L and 100% FiO2. We will attempt more proning today. 10/13 Patient seems to feeling a little bit better today. Nurse able to go down quite a bit on his FiO2 down to 50% today. 10/14 Patient feeling better. Was on 40% FiO2 all day yesterday. Flow decreased to 30. 10/15 Continues to improve clinically, oxygen weaned to 8 L/min. Review of Systems: Physical Exam Head: Atraumatic, normal inspection. Eyes: normal appearance, no scleral icterus. Neck: full ROM Respiratory: no respiratory distress. Cardiovascular: normal rate and rhythm, S1, S2. GI/Abdominal: soft, nontender, no guarding. Extremities: full range of motion, nontender. Neurological: CN II-XII intact, intact motor, intact sensation. Psychiatric: normal mood. Skin: warm, normal color Constitutional Vitals: Vital Signs Temp Pulse Resp BP Pulse Ox 98.1 F 74 19 121/79 97 10/14/21 12:01 10/14/21 11:04 10/14/21 12:01 10/14/21 12:01 10/14/21 12:01 Period Temp Pulse Resp BP Sys/Chan Pulse Ox Last 24 Hr 97.6 F-98.1 F 57-74 19-31 98-135/62-81 86-97 Intake and Output 10/13/21 10/14/21 10/14/21 21:59 05:59 13:59 Intake Total 460 300 550 Output Total 1025 350 Balance -565 -50 550 Weight 90.265 kg 90.265 kg Patient Weight 10/15/21 05:59 Weight 90.265 kg Intake & Output: Intake & Output 10/13/21 10/14/21 10/14/21 21:59 05:59 13:59 Intake Total 460 300 550 Output Total 1025 350 Balance -565 -50 550 Weight 90.265 kg 90.265 kg Intake: IV 550 Zithromax 250 mg In Dextrose 5% 250 in Water 250 ml @ 250 mls/hr IV DAILY@1000 [facility] Rx#:[id number] Veklury 100 mg In Sodium 250 Chloride 0.9% 250 ml @ 500 mls/ hr IV DAILY@1100 [facility] Rx#: [id number] Rocephin 2 gm In Dextrose 5% in 50 Water 50 ml @ 100 mls/hr IV DAILY [facility] Rx#:[id number] Oral 460 300 Output: Void Amount 1025 350 Other: Meal Dinner Percent of Meal Consumed 75% Feeding Ability Independent Urine Appearance Clear Clear Urine Color Dark Ana Cristina Dark Yellow Urine Odor Strong OBJ DATA Labs CBC & Chem 7: 10/11/21 06:08 10/14/21 05:55 Labs: Abnormal Lab Results 10/14/21 10/14/21 10/14/21 05:55 05:55 05:55 D-Dimer 3.24 H BUN Glucose Calcium 7.8 L Ferritin 1599.0 H AST ALT 58 H Lactate Dehydrogenase 516 H C-Reactive Protein 2.60 H Total Protein 5.2 L Albumin 3.1 L Globulin 2.1 L Procalcitonin 10/13/21 10/12/21 10/12/21 06:00 05:49 05:49 D-Dimer BUN 23 H Glucose 206 H 219 H Calcium 7.9 L 8.1 L Ferritin > 2000.0 H AST 43 H 48 H ALT 69 H 61 H Lactate Dehydrogenase 582 H 571 H C-Reactive Protein 7.50 H Total Protein 5.2 L Albumin 3.0 L Globulin 2.0 L Procalcitonin 10/12/21 10/12/21 05:49 05:49 D-Dimer 1.54 H BUN Glucose Calcium Ferritin AST ALT Lactate Dehydrogenase C-Reactive Protein Total Protein Albumin Globulin Procalcitonin 0.43 H Meds: Medications Acetaminophen (Acetaminophen 325 Mg Tablet) 650 mg PO Q6HP PRN; Protocol PRN Reason: Per Pain Protocol/Fever > 101 Last Admin: 10/12/21 21:44 Dose: 650 mg Documented by: Albuterol/Ipratropium (Ipratropium/Albuterol 3 Ml Ampul.Neb) 3 ml NEB Q4HP PRN PRN Reason: Shortness Of Breath Last Admin: 10/12/21 00:13 Dose: 3 ml Documented by: Dexamethasone (Dexamethasone 4 Mg Tablet) 6 mg PO DAILY [facility] Last Admin: 10/14/21 08:30 Dose: 6 mg Documented by: Enoxaparin Sodium (Enoxaparin 40 Mg/0.4 Ml Syringe) 40 mg SQ BID [facility] Last Admin: 10/14/21 08:29 Dose: 40 mg Documented by: Famotidine (Famotidine/Pf 20 Mg/2 Ml Vial) 20 mg IV BID [facility] Last Admin: 10/14/21 08:30 Dose: 20 mg Documented by: Guaifenesin (Guaifenesin/Dextromethorphan Oral Leandra) 10 ml PO Q4HP PRN PRN Reason: Cough Last Admin: 10/13/21 17:30 Dose: 10 ml Documented by: Potassium Chloride 40 meq/ (Dextrose) 520 mls @ 130 mls/hr IV UD PRN PRN Reason: Potassium < 3 Magnesium Sulfate (Magnesium Sulfate) 2 gm in 50 mls @ 50 mls/hr IV UD PRN PRN Reason: Magnesium </= 1.6 Ceftriaxone Sodium 2 gm/ (Dextrose) 50 mls @ 100 mls/hr IV DAILY [facility]; Protocol Last Infusion: 10/14/21 09:19 Dose: Infused Documented by: Azithromycin 250 mg/ Dextrose 250 mls @ 250 mls/hr IV DAILY@1000 [facility] Stop: 10/15/21 10:59 Last Infusion: 10/14/21 10:19 Dose: Infused Documented by: Ondansetron HCl (Ondansetron 4 Mg/2 Ml Vial) 4 mg IV Q4HP PRN PRN Reason: Nausea And Vomiting Last Admin: 10/11/21 11:42 Dose: 4 mg Documented by: Polyethylene Glycol (Polyethylene Glycol 3350 17 Gm Packet) 17 gm PO DAILYP PRN PRN Reason: Constipation Last Admin: 10/14/21 12:02 Dose: 17 gm Documented by: Potassium Chloride (Potassium Chloride 20 Meq Tablet) 40 meq PO UD PRN PRN Reason: Potssium is 3-3.5 Potassium Chloride (Potassium Chloride 20 Meq Tablet) 40 meq PO UD PRN PRN Reason: Potassium < 3 Senna (Sennosides 1 Tablet) 2 tab PO DAILYP PRN PRN Reason: Constipation Sodium Chloride (0.9 % Sodium Chloride 10 Ml Syringe) 10 ml IV Q8 RADHA Last Admin: 10/14/21 06:30 Dose: 10 ml Documented by: Sodium Chloride (Sodium Chloride Nasal 1 Manor Bottle) 2 spray DELMAR Q4HP PRN PRN Reason: Congestion Last Admin: 10/13/21 12:47 Dose: 2 spray Documented by: A/P Narrative A/P Narrative: A: *Covid PNA w/ARDS: *Acute hypoxic respiratory failure: -on vapotherm 35lpm/40% *Elevated procalcitonin *Obesity: *Deaf: *mild transaminitis: Secondary to viral illness. stable P: -Remdesivir/dexamethasone/baricitinib(actemra unavailable) -Empiric antibiotics for possible bacterial pneumonia coinfection given elevatino of procalcitonin and severity of disease process. -Proning/mobilization/OOB to chair -Wean O2 as able -IS/Acapella, prn Nebs, RT -prn IV lasix -ppx: lovenox bid / H2 Time Spent With Patient Time: Total time spent is greater than 50% in coordination of care (as documented) at patient's floor/unit and/or counseling patient: QUALITY VTE Deep Vein Thrombosis/Pulmonary Embolism Present on Admission: No
[2021-10-14] MEDS: SODIUM CHLORIDE NASAL 1 SPRAY BOTTLE NAS PRN (17:56)
[2021-10-15] MEDS: 0.9 % SODIUM CHLORIDE 10 ML SYRINGE IV SCH ×3 (04:44→20:29)
[2021-10-15] MEDS: BARICITINIB 2 MG TABLET PO SCH (09:00)
[2021-10-15] MEDS: cefTRIAXone 2 GM in DEXTROSE 5% IN WATER 50 ML IV SCH (09:00)
[2021-10-15] MEDS: ENOXAPARIN 40 MG/0.4 ML SYRINGE SQ SCH ×2 (09:04→20:29)
[2021-10-15] MEDS: FAMOTIDINE/PF 20 MG/2 ML VIAL IV SCH ×2 (09:04→20:29)
[2021-10-15] MEDS: DEXAMETHASONE 4 MG TABLET PO SCH (09:05)
[2021-10-15] MEDS: AZITHROMYCIN 250 MG in DEXTROSE 5% IN WATER 250 ML IV SCH (09:12)
[2021-10-16] MEDS: 0.9 % SODIUM CHLORIDE 10 ML SYRINGE IV SCH (05:33)
[2021-10-16 07:26] LABS: Basophils # (Auto) 0.07 K/mcL (0.00-0.30); Basophils % (Auto) 0.6 % (0.0-2.0); Eosinophils # (Auto) 0.08 K/mcL (0.00-0.70); Eosinophils % (Auto) 0.7 % (0.0-7.0); Hematocrit 42.1 % (40.1-51.0); Lymphocytes # (Auto) 1.44 K/mcL (1.50-4.80); Lymphocytes % (Auto) 13.2 % (15.5-49.0); Mean Cell Volume 95.5 fL (80.0-100.0); Mean Corpuscular HGB Conc 33.3 g/dL (31.0-36.0); Mean Platelet Volume 11.3 fL (7.4-10.4); Monocytes # (Auto) 0.61 K/mcL (0.10-0.90); Monocytes % (Auto) 5.6 % (1.0-12.0); Neutrophils % (Auto) 79.9 % (38.0-78.0); Platelet Count 235 K/mcL (140-440); RBC 4.41 M/mcL (4.63-6.08); Red Cell Distribution Width 12.2 % (11.5-14.5); WBC 10.9 K/mcL (4.5-11.0)
[2021-10-16 07:35] LABS: ALT/SGPT 53 U/L (<40); AST/SGOT 27 U/L (<40); Albumin 3.5 gm/dL (3.2-5.2); Albumin/Globulin Ratio 1.5 (1.0-2.3); Alkaline Phosphatase 50 U/L (39-117); Bilirubin,Direct < 0.2 mg/dL (0-0.3); Bilirubin,Total 0.4 mg/dL (0.1-1.0); Blood Urea Nitrogen 17 mg/dL (6-20); Calcium 8.4 mg/dL (8.6-10.4); Carbon Dioxide 24 mmol/L (22-30); Chloride 102 mmol/L (96-108); Globulin 2.4 gm/dL (2.2-3.7); Glomerular Filtration Rate 108; Glucose 115 mg/dL (70-105); Lactate Dehydrogenase 555 U/L (135-225); Phosphorous 3.8 mg/dL (2.5-4.5); Triglycerides 141 mg/dL (<150); Uric Acid 5.3 mg/dL (2.5-8.0)
[2021-10-16] MEDS: ENOXAPARIN 40 MG/0.4 ML SYRINGE SQ SCH (08:22)
[2021-10-16] MEDS: FAMOTIDINE/PF 20 MG/2 ML VIAL IV SCH (08:22)
[2021-10-16] MEDS: BARICITINIB 2 MG TABLET PO SCH (08:23)
[2021-10-16] MEDS: DEXAMETHASONE 4 MG TABLET PO SCH (08:23)
[2021-10-16] MEDS: cefTRIAXone 2 GM in DEXTROSE 5% IN WATER 50 ML IV SCH (09:00)
--- NOTE | 2021-10-16 10:53 | Discharge Summary ---
Discharge Provider Provider Patient information: Note initiated : 10/16/21 at 10:51 am Service Date, if different from initiated Date: [] Patient: Leonel Mccracken 46 y/o M admitted on 10/10/21 for Shortness Of Breath, Low O2 Sats. Chief Complaint: [] Date of admission: 10/10/21 13:35 Discharge date: 10/16/21 Primary care physician: PCP No Consults: 10/10/21 09:08 Consult to Physician [CONS] Stat Comment: Consulting Provider: Koffi Rendon Reason For Exam: Physician to Consult Discharge Meds Discharge Medications Home Medications dexamethasone 6 mg tablet 6 mg PO QDAY 4 Days #4 tab 10/16/21 [Rx Last Taken Unknown] COURSE Hospital Course Hospital course: 4Mr. Kaykay is a 46 year old male who presented for shortness of breath cough fever chills.The patient began to feel ill in late September and tested positive for Covid on October 03. The patient has not been vaccinated for COVID. Oxygen saturations where in the 70s on room air when he arrived to the ED. CTA was done which showed no PE but widespread infiltrates consistent with Covid pneumonia. The patient was initially on 6 L/min nasal cannula however that had to be increased to 15 L/min by oxygen mask then switched to Vapotherm. The patient was monitored in the ED for several hours to make sure he did not worsen clinically. The patient remained stable on Vapotherm with a flow of 30 and FiO2 of 60%. 10/11 Patient slept okay but not particularly well. Says his shortness of breath is okay and sometimes difficult. He is requiring more oxygen. He states it hurts to cough. He was not proning yesterday but was willing to do it today. 10/12 Patient feels he is doing little better today. However still on high oxygen requirement at 45 L and 100% FiO2. We will attempt more proning today. 10/13 Patient seems to feeling a little bit better today. Nurse able to go down quite a bit on his FiO2 down to 50% today. 10/14 Patient feeling better. Was on 40% FiO2 all day yesterday. Flow decreased to 30. 10/15 Continues to improve clinically, oxygen weaned to 8 L/min. 10/16 Weaned down to 2 L/min overnight, on room air today. Home oxygen evaluation was done, the patient will require home oxygen at discharge. The patient has a home oximeter, RT provided instructions for oxygen supplementation. Dexamethasone at discharge to complete 10 days. Physical Exam Head: Atraumatic, normal inspection. Eyes: normal appearance, no scleral icterus. Neck: full ROM Respiratory: no respiratory distress. Cardiovascular: normal rate and rhythm, S1, S2. GI/Abdominal: soft, nontender, no guarding. Extremities: full range of motion, nontender. Neurological: CN II-XII intact, intact motor, intact sensation. Psychiatric: normal mood. Skin: warm, normal color Discharge diagnosis: Severe COVID-19 pneumonia Time Spent with Patient Time attestation: Total time spent providing and/or coordinating discharge services: EXAM Constitutional Vitals: Temp Pulse Resp BP Pulse Ox 98.0 F 61 22 136/71 96 10/16/21 10:01 10/16/21 05:56 10/16/21 10:01 10/16/21 10:01 10/16/21 10:01 Discharge Data Data Completed and Pending Labs on day of discharge: Labs from last 24 hours 10/16/21 10/16/21 10/16/21 05:50 05:50 05:50 WBC 10.9 RBC 4.41 L Hgb 14.0 Hct 42.1 MCV 95.5 MCH 31.7 MCHC 33.3 RDW 12.2 Plt Count 235 MPV 11.3 H Neut % (Auto) 79.9 H Lymph % (Auto) 13.[address] [place] % (Auto) 5.6 Eos % (Auto) 0.7 Baso % (Auto) 0.6 Lymph # (Auto) 1.[address] [place] # (Auto) 0.61 Eos # (Auto) 0.08 Baso # (Auto) 0.07 Absolute Neutrophils 8.70 H D-Dimer 1.98 H Sodium 137 Potassium 4.9 Chloride 102 Carbon Dioxide 24 Anion Gap 11.0 BUN 17 Creatinine 0.8 GFR Calculation 108 Glucose 115 H Uric Acid 5.3 Calcium 8.4 L Phosphorus 3.8 Magnesium 2.4 Total Bilirubin 0.4 Direct Bilirubin < 0.2 GGT 36 AST 27 ALT 53 H Alkaline Phosphatase 50 Lactate Dehydrogenase 555 H Total Protein 5.9 Albumin 3.5 Globulin 2.4 Albumin/Globulin Ratio 1.5 Triglycerides 141 Discharge Plan Patient/Caregiver Discharge Instructions Activity: increase activity as tolerated and as instructed Diet: Regular Diet Instructions: High Protein Diet (GEN) Prescriptions: New dexamethasone 6 mg tablet 6 mg PO QDAY 4 Days Qty: 4 0RF Rx Instructions: Take Dexamethasone 6 mg daily for four more days to complete 10 days of treatment. Start on 10/17/21, you received a dose on 10/16/21 in the hospital before discharge. Follow Up Plan Follow up with: No,PCP [Primary Care Provider] - Patient Disposition: Home, Self-Care Prognosis: Fair Overall status at discharge: patient is progressing back to baseline Discharge Orders: Discharge Order (Routine); Ordered 10/16/21 Ordered By: Gabe LOPES VTE Deep Vein Thrombosis/Pulmonary Embolism Present on Admission: No
== END 2021-10-16 13:30 | disposition home or self-care (01) | DRG 177 ==
LOC: MERGE 07:45 → ED 07:45 → ICU 13:35
PROVIDERS: ADMIT Internal Medicine; ATTEND Internal Medicine